=== PATIENT | male | born 1950 | race Caucasian/White ===

== ENCOUNTER 2022-04-14 14:09 | Inpatient (IN) | payer MEDICARE, OTHER ==
[2022-04-14] MEDS ORDERED: Sodium Chloride 0.9% 10 ML Syringe FLUSH PRN (14:27)
[2022-04-14 14:47] LABS: ANION GAP 11.4 mmol/L (5-15); CHLORIDE,CL 100 mmol/L (98-107); SODIUM,NA 138 mmol/L (136-145)
[2022-04-14 14:49] LABS: ESTIMATED GFR 86 mL/min (>=60)
[2022-04-14] MEDS ORDERED: cefTRIAXone 1 GM Vial IVPUSH ONE (16:40)
[2022-04-14] MEDS ORDERED: Loratadine 10 MG Tab PO PRN (19:06)
[2022-04-14] MEDS ORDERED: PEG 400/Hypromellose/Glycerin 15 ML Bottle EYEBOTH PRN (19:06)
[2022-04-14] MEDS ORDERED: Nitroglycerin 0.4 MG Tab.SL SL PRN (19:06)
[2022-04-14] MEDS ORDERED: atorvaSTATin 40 MG Tab PO ONE (19:17)
[2022-04-14] MEDS ORDERED: Aspirin 81 MG Tab.Chew PO ONE (19:18)
[2022-04-14] MEDS: Metoprolol Succinate 50 MG Tab.ER PO SCH (20:38)
[2022-04-14] MEDS: Albuterol 8 GM Inhaler INH PRN (20:44)
[2022-04-14] MEDS ORDERED: Lisinopril 10 MG Tab PO SCH (21:00)
[2022-04-15 06:51] LABS: ANION GAP 12.5 mmol/L (5-15)
[2022-04-15] MEDS: Metoprolol Succinate 50 MG Tab.ER PO SCH (08:06)
[2022-04-15] MEDS: Albuterol 8 GM Inhaler INH PRN (08:14)
[2022-04-15] MEDS ORDERED: Doxazosin 2 MG Tab PO SCH (09:00)
[2022-04-15] MEDS ORDERED: Aspirin 81 MG Tab.EC PO SCH (09:00)
[2022-04-15] MEDS ORDERED: Acetaminophen 325 MG Tab PO PRN (10:01)
[2022-04-15] MEDS ORDERED: cefTRIAXone 1 GM Vial IVPUSH SCH (16:00)
[2022-04-15] MEDS ORDERED: atorvaSTATin 10 MG Tab PO SCH (21:00)
== END 2022-04-15 12:52 | DRG 64 ==
LOC: KA.ED 14:09 → MERGE 16:36 → KA.MS 16:36
PROVIDERS: ADMIT Student in an Organized Health Care Education/Training Program; ATTEND Student in an Organized Health Care Education/Training Program
DX: I63.59 Cerebral infarction due to unspecified occlusion or stenosis of other cerebral artery (principal); I21.A1 Myocardial infarction type 2; G45.9 Transient cerebral ischemic attack, unspecified; J18.9 Pneumonia, unspecified organism; I50.22 Chronic systolic (congestive) heart failure; N13.8 Other obstructive and reflux uropathy; R29.702 NIHSS score 2; R47.81 Slurred speech; I25.5 Ischemic cardiomyopathy; I11.0 Hypertensive heart disease with heart failure; F17.210 Nicotine dependence, cigarettes, uncomplicated; H57.89 Other specified disorders of eye and adnexa; E78.5 Hyperlipidemia, unspecified; N40.1 Benign prostatic hyperplasia with lower urinary tract symptoms; Z90.89 Acquired absence of other organs; R79.89 Other specified abnormal findings of blood chemistry; Z79.82 Long term (current) use of aspirin; Z79.52 Long term (current) use of systemic steroids; Z79.899 Other long term (current) drug therapy; Z98.42 Cataract extraction status, left eye; Z98.41 Cataract extraction status, right eye; Z87.440 Personal history of urinary (tract) infections; Z98.890 Other specified postprocedural states; Z89.012 Acquired absence of left thumb; Z95.1 Presence of aortocoronary bypass graft; I10 Essential (primary) hypertension; I25.10 Atherosclerotic heart disease of native coronary artery without angina pectoris; E78.00 Pure hypercholesterolemia, unspecified; I25.2 Old myocardial infarction
CPT/HCPCS: 36415; 70450; 71046; 80053; 83735; 83880; 84484; 85025; 85730; 86140; 93005; 93010; 99284; 99285; A9270-GY; J0696

== ENCOUNTER 2022-04-25 09:41 | Emergency (ER) | payer MEDICARE, OTHER ==
[2022-04-25] MEDS ORDERED: Sodium Chloride 0.9% 10 ML Syringe FLUSH PRN (09:51)
[2022-04-25 10:18] LABS: ANION GAP 11.3 mmol/L (5-15); CHLORIDE,CL 103 mmol/L (98-107); SODIUM,NA 142 mmol/L (136-145)
[2022-04-25 10:19] LABS: ESTIMATED GFR 94 mL/min (>=60)
[2022-04-25] MEDS: Sodium Chloride 0.9% 50 ML IV SCH (10:42)
[2022-04-25] MEDS: Aspirin 81 MG Tab.Chew PO ONE (11:48)
[2022-04-25] MEDS: Cefepime 2 GM Vial IVPUSH ONE (12:31)
[2022-04-26] MEDS: Iopamidol 755 Mg/ML 75 ML Bottle IVPUSH ONE (09:34)
== END 2022-04-25 13:25 ==
LOC: KA.ED 09:41
DX: J18.9 Pneumonia, unspecified organism (principal); R16.0 Hepatomegaly, not elsewhere classified; R77.8 Other specified abnormalities of plasma proteins; R79.89 Other specified abnormal findings of blood chemistry; I25.10 Atherosclerotic heart disease of native coronary artery without angina pectoris; E78.00 Pure hypercholesterolemia, unspecified; I11.0 Hypertensive heart disease with heart failure; I50.9 Heart failure, unspecified; I25.2 Old myocardial infarction; Z95.1 Presence of aortocoronary bypass graft; Z79.82 Long term (current) use of aspirin; Z79.899 Other long term (current) drug therapy
CPT/HCPCS: 71045; 71275; 80053; 84484; 85025; 85379; 93005; 93010; 96374; 99284; 99285-25; A9270-GY; J0692